=== PATIENT | female | born 2000 | race African-American/Black ===

== ENCOUNTER 2024-11-27 00:23 | Emergency (ER) | payer MEDICAID, SELFPAY ==
[2024-11-27 00:24] VITALS: BP 118/78; PULSE 82; RESP 20; TEMP 36.7; O2SAT 96
[2024-11-27 06:14] VITALS: BP 143/88; PULSE 89; RESP 18; O2SAT 100
[2024-11-27 08:06] VITALS: BP 134/84; PULSE 66; RESP 16; TEMP 36.4; O2SAT 96
--- NOTE | 2024-11-27 09:27 | PC.NURSE ---
Pt refusing to get into hospital gown stating I don't need it.
[2024-11-27 09:30] VITALS: BP 136/81; PULSE 82; RESP 15; O2SAT 96
--- NOTE | 2024-11-27 09:33 | PC.NURSE ---
Pt requesting to speak to care coordination for resources after disclosing that she is homeless
--- NOTE | 2024-11-27 10:27 | ED.GENADULT ---
HPI - General Adult General Chief complaint: Shortness of Breath/Dyspnea Stated complaint: SOB, asthma attack Time Seen by Provider: 11/27/24 09:42 History of Present Illness HPI narrative: 24-year-old female presents to the emergency department for evaluation for an asthma attack. Patient called EMS for this and received a [employer] EN route. Upon arrival emergency department patient states she feels improved. Patient has declined any additional workup in the emergency department. Patient is requesting an albuterol inhaler. Related Data Allergies Allergy/AdvReac Type Severity Reaction Status Date / Time No Known Allergies Allergy Verified 11/27/24 09:29 Review of Systems Review of Systems: All systems reviewed & are unremarkable except as noted in HPI and below Exam Narrative: APPEARANCE: Well appearing, no pain, no distress, well-nourished. HEAD: normocephalic, atraumatic. EYES: PERRLA/EOMI, conjunctivae clear. NOSE: Normal no drainage EARS:TMS clear with good light reflex. THROAT: Pharynx clear, no exudate. NECK: Supple. No adenopathy, no masses. RESPIRATORY: Airway patent, respirations nonlabored. Clear to auscultation bilaterally, no rales, rhonchi, wheezing. CARDIOVASCULAR: Regular rate and rhythm without murmurs rubs or gallops. ABDOMINAL: Soft, nontender, nondistended, normal bowel sounds MUSCULOSKELETAL: Moves all extremities. Strength/ROM intact, No edema, No calf tenderness. NEURO: Alert. Cranial nerves II through XII intact. Good gait. Good coordination SKIN: Warm, dry. Normal Color Course Vital Signs Vital signs: Vital Signs Temperature 98.1 F 11/27/24 00:24 Pulse Rate 82 11/27/24 00:24 Respiratory Rate 20 11/27/24 00:24 Blood Pressure 118/78 11/27/24 00:24 Pulse Oximetry 96 11/27/24 00:24 Oxygen Delivery Room Air 11/27/24 00:24 Temperature 97.8 F 11/27/24 10:49 Pulse Rate 86 11/27/24 10:49 Respiratory Rate 16 11/27/24 10:49 Blood Pressure 118/68 11/27/24 10:49 Pulse Oximetry 100 11/27/24 10:49 Oxygen Delivery Room Air 11/27/24 09:30 Medical Decision Making [facility] Narrative Medical decision making narrative: 24-year-old female history of asthma present to the emergency department for an asthma attack. Patient states her symptoms are resolved after the breathing treatment. Patient has declined any additional workup. Patient is requesting discharge and an albuterol inhaler. Differential Diagnosis Differential Diagnosis: Asthma, pneumonia, COVID, RSV, influenza Vital Signs Vital Signs: Vital Signs Temperature 98.1 F 11/27/24 00:24 Pulse Rate 82 11/27/24 00:24 Respiratory Rate 20 11/27/24 00:24 Blood Pressure 118/78 11/27/24 00:24 Pulse Oximetry 96 11/27/24 00:24 Oxygen Delivery Room Air 11/27/24 00:24 Temperature 97.8 F 11/27/24 10:49 Pulse Rate 86 11/27/24 10:49 Respiratory Rate 16 11/27/24 10:49 Blood Pressure 118/68 11/27/24 10:49 Pulse Oximetry 100 11/27/24 10:49 Oxygen Delivery Room Air 11/27/24 09:30 Discharge Plan Discharge Clinical Impression: Asthma exacerbation Patient Disposition: Home, Self-Care Condition: Stable Instructions: Antibiotic Form, Asthma (ED) Additional Instructions: Prednisone as directed for the next 5 days. Use your albuterol inhaler as directed. Have close follow-up with primary care physician. Patient Language: Uzbek Prescriptions: New albuterol sulfate 90 mcg/actuation HFA aerosol inhaler 1 puff inhalation QID PRN (Reason: shortness of breath or wheezing) Qty: 6.7 0RF prednisone 50 mg tablet 50 mg PO DAILY Qty: 5 0RF Follow-up/Referrals: PHYSICIAN,[facility] [Non-Staff] -
[2024-11-27 10:49] VITALS: BP 118/68; PULSE 86; RESP 16; TEMP 36.6; O2SAT 100
--- NOTE | 2024-11-27 17:04 | PCCCNOTE ---
Called to the ED to help pt with homeless [place] [facility] resources. Pt states that she has been to [facility] in [facility], and will not go back there. I called the [facility] homeless hotline, pt went through the referral process for [facility] in [place], with no return call. I attempted to call them and left a message, but they did not call back. I also called the [facility] in [place], but they did not return my call. Pt was D/C'd from the ED with bus tokens, lunch, and phone numbers to the places I called, incase she is able to use a phone somewhere, she can check the status of her referrals.
== END 2024-11-27 10:51 | disposition home or self-care (01) ==
LOC: ANHED 10:44
PROVIDERS: Emergency Provider Emergency Medicine
DX: J45.901 Unspecified asthma with (acute) exacerbation (principal)
CPT/HCPCS: 99283